=== PATIENT | male | born 1960 | race African-American/Black ===

== ENCOUNTER 2017-02-01 06:50 | Emergency (ER) | payer MEDICAID, OTHER ==
[~2017-02-01] VITALS: Ht 188 cm; Wt 99.8 kg
[2017-02-01 09:35] VITALS: BP 156/89
== END 2017-02-01 09:51 | disposition home or self-care (01) ==
LOC: EDBD 06:50 → ER 06:50
DX: M25.512 Pain in left shoulder (principal); E11.9 Type 2 diabetes mellitus without complications; I10 Essential (primary) hypertension; M25.552 Pain in left hip; F17.210 Nicotine dependence, cigarettes, uncomplicated; J45.909 Unspecified asthma, uncomplicated; V43.52XA Car driver injured in collision with other type car in traffic accident, initial encounter; Y93.89 Activity, other specified; Y92.89 Other specified places as the place of occurrence of the external cause; Y99.8 Other external cause status; R42 Dizziness and giddiness
CPT/HCPCS: 70450; 72125; 82962